=== PATIENT | male | born 1965 | race Caucasian/White ===

== ENCOUNTER 2019-07-08 09:28 | Observation (INO) ==
[2019-07-08] MEDS ORDERED: Morphine Sulfate 2 MG/ML SYRINGE IVP ONE ×2 (09:39→11:43)
[2019-07-08 10:02] LABS: Basophils % 0.3 %; Eosinophils # 0.2 K/mcL (0.0-0.6); Eosinophils % 1.5 %; Hematocrit 44.6 % (37.5-50.1); Hemoglobin 14.4 g/dL (12.9-16.9); Immature Granulocytes % 0.5 % (0-4); Lymphocytes # 2.2 K/mcL (0.6-4.6); Lymphocytes % 16.9 %; Mean Corpuscular HGB Conc 32.3 g/dL (31.6-35.5); Mean Corpuscular Volume 89.7 fL (83.0-100.0); Mean Platelet Volume 9.7 fL (9.4-12.4); Monocytes # 0.9 K/mcL (0.0-1.3); Monocytes % 6.8 %; Neutrophils # 9.4 K/mcL (1.6-8.9); Platelet Count 279 K/mcL (140-400); Red Blood Count 4.97 M/mcL (4.19-5.50); Red Cell Distribution Width 13.2 % (11.5-14.5); White Blood Count 12.8 K/mcL (4.3-11.1)
[2019-07-08 10:06] LABS: Prothrombin Time 11.1 Seconds (9.4-12.1)
[2019-07-08 10:27] LABS: BUN/Creatinine Ratio 20 (6-26); Blood Urea Nitrogen 18 mg/dL (6-20); Carbon Dioxide 29 mEq/L (23-29); Chloride 103 mEq/L (98-107); Glucose 156 mg/dL (70-105); Osmolality,Calculated 293 (280-300); Potassium 4.4 mEq/L (3.5-5.1); Sodium 139 mEq/L (136-145); Troponin I < 0.03 ng/mL (< 0.04); eGFR For African Americans > 60 (> 60); eGFR For Non-African Americans > 60 (> 60)
[2019-07-08] MEDS ORDERED: Ondansetron 4 MG/2 ML VIAL IVP ONE (11:44)
[2019-07-08] MEDS ORDERED: metroNIDAZOLE 500 MG TABLET PO ONE (12:22)
[2019-07-08] MEDS ORDERED: Naloxone 0.4 MG/ML INJ IVP PRN (12:47)
[2019-07-08] MEDS ORDERED: Ondansetron 4 MG/2 ML VIAL IVP PRN (12:47)
[2019-07-08] MEDS ORDERED: Nitroglycerin 0.4 MG TAB.SUBL SL PRN (12:59)
[2019-07-08] MEDS ORDERED: Perflutren Lipid Microsphere 1.3 ML in 0.9 % Sodium Chloride 8.7 ML IVP ONE (20:34)
[2019-07-08] MEDS ORDERED: Perflutren Lipid Microsphere 2 ML VIAL ONE (20:44)
[2019-07-09 06:39] LABS: Hematocrit 43.6 % (37.5-50.1); Hemoglobin 14.2 g/dL (12.9-16.9); Mean Corpuscular HGB Conc 32.6 g/dL (31.6-35.5); Mean Corpuscular Hemoglobin 29.3 pg (28.0-33.3); Mean Corpuscular Volume 89.9 fL (83.0-100.0); Mean Platelet Volume 10.9 fL (9.4-12.4); Platelet Count 189 K/mcL (140-400); Red Blood Count 4.85 M/mcL (4.19-5.50); Red Cell Distribution Width 13.3 % (11.5-14.5); White Blood Count 9.4 K/mcL (4.3-11.1)
[2019-07-09 07:01] LABS: BUN/Creatinine Ratio 19 (6-26); Blood Urea Nitrogen 16 mg/dL (6-20); Calcium 8.9 mg/dL (8.6-10.3); Carbon Dioxide 27 mEq/L (23-29); Chloride 103 mEq/L (98-107); Glucose 119 mg/dL (70-105); Osmolality,Calculated 294 (280-300); Potassium 4.5 mEq/L (3.5-5.1); Sodium 141 mEq/L (136-145); eGFR For African Americans > 60 (> 60); eGFR For Non-African Americans > 60 (> 60)
[2019-07-09] MEDS ORDERED: Regadenoson 0.4 MG/5 ML SYRINGE IVP ONE ×2 (08:17→11:53)
[2019-07-09] MEDS ORDERED: Aspirin Enteric Coated 81 MG Tablet PO SCH (09:00)
[2019-07-09] MEDS ORDERED: amLODIPine 5 MG TABLET PO SCH (13:39)
[2019-07-09 14:17] VITALS: BP 143/83
[2019-07-09] MEDS ORDERED: Isosorbide MONOnitrate (24 HR) 30 MG TAB.ER.24H PO SCH (15:00)
== END 2019-07-09 15:57 | disposition home or self-care (01) ==
LOC: EDBD → CDU 09:28 → EMEROOARM 09:28 → CDU 13:26 → 3BNU 17:49
PROVIDERS: ADMIT Internal Medicine; ATTEND Internal Medicine